=== PATIENT | male | born 1950 | race Caucasian/White ===

== ENCOUNTER → 2017-02-13 | Outpatient (CLI) | payer MEDICARE ==
[2015-09-13 15:00] VITALS: BP 116/85
[~2017-02-13] MED LIST: APIX5TAB PO; ASPI-482 PO; ATORVASTATIN CA80 MG PO; CARV12.52 PO; CARV6.25 PO; DIGO125T16 PO; DILT180C64 PO; Diltiazem Hcl PO; HYDR25TA9 PO; LISI40TA PO; NIAC500T4 PO; Nicotine TD; PRAV80TA2 PO; Promethazine Hcl/Codeine PO; [UNRECOGNIZED DRUG - CODE] IJ
--- NOTE | 2017-02-13 09:41 | CARD ---
APPROVED REPORT EXAM: Two-dimensional and M-mode echocardiogram with Doppler and color Doppler. Other Information Quality : GoodHR: 81bpm Rhythm : Atrial Fibrillation INDICATION Systolic heart failure RISK FACTORS Hypertension Obesity Hyperlipidemia Smoking 2D DIMENSIONS RVDd3.7 (2.9-3.5cm)Left Atrium(2D)4.5 (1.6-4.0cm) IVSd1.2 (0.7-1.1cm)Aortic Root(2D)3.9 (2.0-3.7cm) LVDd5.5 (3.9-5.9cm)LVOT Diameter2.4 (1.8-2.4cm) PWd1.3 (0.7-1.1cm)LVDs4.7 (2.5-4.0cm) FS (%) 14.1 %SV43.6 ml LVEF(%)29.8 (>50%) Mitral Valve MV E Peak Gr.3mmHgMV E Mean Gr.1mmHg Pulmonary Valve PV Peak Mcmmdnnp592.5cm/s Tricuspid Valve TR P. Lvfdvuqs020ur/sTR Peak Gr.25mmHg Pulmonary Vein S1 Ggaufmmi54.9cm/sD2 Xdcrvbtt08.4cm/s LEFT VENTRICLE The left ventricle is normal size. There is mild concentric left ventricular hypertrophy. Left ventri sonny systolic function is mild to moderately impaired. The Ejection Fraction is 35% There is moderate global hypokinesis of the left ventricle. Tissue Doppler imaging reveals moderate left ventricular di astolic dysfunction. RIGHT VENTRICLE The right ventricle is normal size. There is normal right ventricular wall thickness. The right ventr icular systolic function is normal. A pacemaker/ICD lead is noted. ATRIA The left atrium is severely dilated. The right atrium is mildly dilated. The interatrial septum is in tact with no evidence for an atrial septal defect or patent foramen ovale as noted on 2-D or Doppler imaging. AORTIC VALVE The aortic valve is mildly thickened. The aortic valve is trileaflet. Doppler and Color Flow revealed no significant aortic regurgitation. There is no significant aortic valvular stenosis. MITRAL VALVE The mitral valve leaflets are thickened. There is no evidence of mitral valve prolapse. There is no m itral valve stenosis. Doppler and Color Flow revealed mild mitral regurgitation. TRICUSPID VALVE Doppler and Color Flow revealed mild tricuspid regurgitation. The pulmonary artery systolic pressure is estimated at 28 mmHg. There is no pulmonary hypertension. PULMONIC VALVE Doppler and Color Flow revealed trace pulmonic valvular regurgitation. There is no pulmonic valvular stenosis. GREAT VESSELS The aortic root is mildly enlarged. The ascending aorta is mildly dilated. The IVC is normal in size and collapses >50% with inspiration. PERICARDIAL EFFUSION There is no evidence of significant pericardial effusion. Critical Notification Critical Value: No <Conclusion> Left ventricle systolic function is mild to moderately impaired. The Ejection Fraction is 35% There is moderate global hypokinesis of the left ventricle. A pacemaker/ICD lead is noted.
== END | disposition home or self-care (01) ==
LOC: ECHO 07:29
PROVIDERS: ATTEND Internal Medicine Cardiovascular Disease
DX: I07.1 Rheumatic tricuspid insufficiency (principal)
CPT/HCPCS: 93306

== ENCOUNTER 2017-12-28 13:34 | Emergency (ER) | payer MEDICARE ==
[2017-12-28] MEDS: diazePAM 5 MG TABLET PO (14:58)
[2017-12-28] MEDS: predniSONE 10 MG TABLET PO (14:58)
[2017-12-28] MEDS: HYDROcodone/APAP 5/325MG 1 TAB TABLET PO (14:59)
== END 2017-12-28 15:18 | disposition home or self-care (01) ==
LOC: ER 13:34
DX: M54.5 Low back pain (principal); I25.2 Old myocardial infarction; I10 Essential (primary) hypertension; Z95.5 Presence of coronary angioplasty implant and graft
CPT/HCPCS: 99284; J7512

== ENCOUNTER 2018-05-02 11:05 | Emergency (ER) | payer MEDICARE ==
[2018-05-02 11:39] LABS: ADD MAN DIFF? NO
[2018-05-02 11:42] LABS: BASO # 0.1 x10^3/uL (0.0-0.2); BASO % 1 % (0-3); EOS # 0.1 x10^3/uL (0.0-0.7); EOS % 2 % (0-3); HEMATOCRIT 46.1 % (39.0-53.0); HEMOGLOBIN 15.6 g/dL (13.0-17.5); LYMPH # 1.7 x10^3/uL (1.0-4.8); LYMPH % 19 % (24-48); MEAN CORPUSCULAR HEMOGLOBIN 31 pg (25-35); MEAN CORPUSCULAR HGB CONC 34 g/dL (31-37); MEAN CORPUSCULAR VOLUME 93 fL (79-100); MONO # 0.8 x10^3/uL (0.0-1.1); MONO % 9 % (0-9); NEUT # 6.1 x10^3uL (1.8-7.7); NEUT % 69 % (31-73); PLATELET COUNT 169 x10^3/uL (140-400); RED BLOOD COUNT 4.98 x10^6/uL (4.30-5.70); RED CELL DISTRIBUTION WIDTH 14.7 % (11.5-14.5); WHITE BLOOD COUNT 8.7 x10^3/uL (4.0-11.0)
[2018-05-02 11:55] LABS: ANION GAP 11 (6-14); BLOOD UREA NITROGEN 26 mg/dL (8-26); BUN/CREATININE RATIO 24 (6-20); CARBON DIOXIDE 27 mmol/L (21-32); CHLORIDE 104 mmol/L (98-107); CREATININE 1.1 mg/dL (0.7-1.3); GLUCOSE 110 mg/dL (70-99); POTASSIUM 3.5 mmol/L (3.5-5.1); SODIUM 142 mmol/L (136-145)
[2018-05-02 12:01] LABS: ALBUMIN 3.6 g/dL (3.4-5.0); ALBUMIN/GLOBULIN RATIO 1.1 (1.0-1.7); ALK PHOS 75 U/L (46-116); ALT (SGPT) 17 U/L (16-63); AST (SGOT) 26 U/L (15-37); TOTAL BILIRUBIN 0.7 mg/dL (0.2-1.0)
[2018-05-02 12:04] LABS: NT-PRO BNP 805 pg/mL (0-124); TROPONINI < 0.017 ng/mL (0.000-0.055)
[2018-05-02] MEDS: IPRATRPIUM/ALBUTEROL 0.5/2.5MG 3 ML NEBU. NEB (12:10)
[2018-05-02 12:16] LABS: INR 1.2 (0.8-1.1); PROTHROMBIN TIME PATIENT 14.2 SEC (11.7-14.0)
[2018-05-02] MEDS: predniSONE 10 MG TABLET PO (12:20)
[2018-05-02] MEDS: DOXYCYCLINE HYCLATE 100 MG TABLET PO (12:20)
== END 2018-05-02 13:43 | disposition home or self-care (01) ==
LOC: ER 11:05
DX: J40 Bronchitis, not specified as acute or chronic (principal); I10 Essential (primary) hypertension; I25.2 Old myocardial infarction; Z95.5 Presence of coronary angioplasty implant and graft
CPT/HCPCS: 36415; 71045; 80053; 83880; 84484; 85025; 85610; 93005; 94640; 99285-25; J7512; J7620

== ENCOUNTER 2018-06-13 14:55 | Emergency (ER) | payer MEDICARE ==
[~2018-06-13] VITALS: Ht 177.8 cm; Wt 106.6 kg
[~2018-06-13 14:55] MED LIST changes: +ALBU2.5V5 NEB; +CYCL10TA2 PO; -DIGO125T16 PO; +DIGO125T79 PO; +DOXY100T PO; +HYDR-971 PO; +LISI-130 PO; -LISI40TA PO; +METH4TAB2 PO; +PRED50TA PO; +PROAIR HFA8.5 GM INH
[2018-06-13 15:32] LABS: BASO # 0.1 x10^3/uL (0.0-0.2); BASO % 1 % (0-3); EOS # 0.1 x10^3/uL (0.0-0.7); EOS % 1 % (0-3); HEMATOCRIT 44.9 % (39.0-53.0); HEMOGLOBIN 15.3 g/dL (13.0-17.5); LYMPH # 1.4 x10^3/uL (1.0-4.8); LYMPH % 14 % (24-48); MEAN CORPUSCULAR HEMOGLOBIN 31 pg (25-35); MEAN CORPUSCULAR HGB CONC 34 g/dL (31-37); MEAN CORPUSCULAR VOLUME 91 fL (79-100); MONO # 0.9 x10^3/uL (0.0-1.1); MONO % 9 % (0-9); NEUT # 7.2 x10^3uL (1.8-7.7); NEUT % 75 % (31-73); PLATELET COUNT 179 x10^3/uL (140-400); RED BLOOD COUNT 4.95 x10^6/uL (4.30-5.70); RED CELL DISTRIBUTION WIDTH 14.7 % (11.5-14.5); WHITE BLOOD COUNT 9.7 x10^3/uL (4.0-11.0)
--- NOTE | 2018-06-13 15:37 | RAD ---
Exam: AP portable chest History: Shortness of breath today. Comparison: May 02, 2018. Findings: The heart and mediastinal structures are within normal limits for size. Lungs are without infiltrate. No pleural effusion or pneumothorax is identified. The AICD by left subclavian approach is seen. Impression: 1. No acute cardiopulmonary process. Electronically signed by: Shaheen Ge MD (06/13/2018 3:34 PM) [facility]
[2018-06-13 15:51] LABS: CALCIUM 9.6 mg/dL (8.5-10.1); CREATININE 0.9 mg/dL (0.7-1.3); GFR 84.2; POTASSIUM 3.5 mmol/L (3.5-5.1)
--- NOTE | 2018-06-13 15:52 | PHYS DOC ---
Past Medical History Past Medical History: Bronchitis, CAD, CHF, Hypertension, [place] Past Surgical History: Angioplasty, Pacemaker Additional Past Surgical Histo: cardiac stent placement Alcohol Use: None Drug Use: None Adult General Chief Complaint Chief Complaint: WEAKNESS/GENERALIZED HPI HPI Patient is a 68 year old male who presents with a history of profuse sweating. The patient states that he has no current chest pain, nausea or vomiting. He states that he feels fine but is sweating and tired. He states that he did have a heart attack with stents placed in 2008 and his main symptom with that MO was profuse sweating, so this incident scared him. He sees cardiology and does have an implanted pacemaker. Review of Systems Review of Systems Constitutional: Denies fever or chills [] Eyes: Denies change in visual acuity, redness, or eye pain [] HENT: Denies nasal congestion or sore throat [] Respiratory: Denies cough or shortness of breath [] Cardiovascular: See history of present illness GI: Denies abdominal pain, nausea, vomiting, bloody stools or diarrhea [] : Denies dysuria or hematuria [] Musculoskeletal: Denies back pain or joint pain [] Integument: Denies rash or skin lesions [] Neurologic: Denies headache, focal weakness or sensory changes [] Endocrine: Denies polyuria or polydipsia [] All other systems were reviewed and found to be within normal limits, except as documented in this note. Allergies Allergies Allergies Coded Allergies Type Severity Reaction Last Updated Verified No Known Drug Allergies 09/27/14 No Physical Exam Physical Exam Constitutional: Well developed, well nourished, no acute distress, non-toxic appearance. [] HENT: Normocephalic, atraumatic, bilateral external ears normal, oropharynx moist, no oral exudates, nose normal. [] Eyes: PERRLA, EOMI, conjunctiva normal, no discharge. [] Neck: Normal range of motion, no tenderness, supple, no stridor. [] Cardiovascular:Heart rate regular rhythm, no murmur [] Lungs & Thorax: Bilateral breath sounds clear to auscultation [] Abdomen: Bowel sounds normal, soft, no tenderness, no masses, no pulsatile masses. [] Skin: Warm, dry, no erythema, no rash. [] Neurologic: Alert and oriented X 3, normal motor function, normal sensory function, no focal deficits noted. [] Psychologic: Affect normal, judgement normal, mood normal. [] Current Patient Data Vital Signs Vital Signs Date Time Temp Pulse Resp B/P (MAP) Pulse Ox O2 Delivery O2 Flow Rate FiO2 06/13/18 18:21 96 20 96 06/13/18 14:55 98.3 134/73 (93) Room Air 98.3 Lab Values Laboratory Tests Test 06/13/18 15:24 06/13/18 17:25 White Blood Count 9.7 x10^3/uL (4.0-11.0) Red Blood Count 4.95 x10^6/uL (4.30-5.70) Hemoglobin 15.3 g/dL (13.0-17.5) Hematocrit 44.9 % (39.0-53.0) Mean Corpuscular Volume 91 fL (79-100) Mean Corpuscular Hemoglobin 31 pg (25-35) Mean Corpuscular Hemoglobin Concent 34 g/dL (31-37) Red Cell Distribution Width 14.7 % (11.5-14.5) H Platelet Count 179 x10^3/uL (140-400) Neutrophils (%) (Auto) 75 % (31-73) H Lymphocytes (%) (Auto) 14 % (24-48) L Monocytes (%) (Auto) 9 % (0-9) Eosinophils (%) (Auto) 1 % (0-3) Basophils (%) (Auto) 1 % (0-3) Neutrophils # (Auto) 7.2 x10^3uL (1.8-7.7) Lymphocytes # (Auto) 1.4 x10^3/uL (1.0-4.8) Monocytes # (Auto) 0.9 x10^3/uL (0.0-1.1) Eosinophils # (Auto) 0.1 x10^3/uL (0.0-0.7) Basophils # (Auto) 0.1 x10^3/uL (0.0-0.2) D-Dimer (Kanwal) 0.36 ug/mlFEU (0.00-0.50) Sodium Level 138 mmol/L (136-145) Potassium Level 3.5 mmol/L (3.5-5.1) Chloride Level 102 mmol/L (98-107) Carbon Dioxide Level 29 mmol/L (21-32) Anion Gap 7 (6-14) Blood Urea Nitrogen 20 mg/dL (8-26) Creatinine 0.9 mg/dL (0.7-1.3) Estimated GFR (Cockcroft-Gault) 84.2 BUN/Creatinine Ratio 22 (6-20) H Glucose Level 117 mg/dL (70-99) H Calcium Level 9.6 mg/dL (8.5-10.1) Total Bilirubin 0.6 mg/dL (0.2-1.0) Aspartate Amino Transferase (AST) 17 U/L (15-37) Alanine Aminotransferase (ALT) 22 U/L (16-63) Alkaline Phosphatase 69 U/L (46-116) Creatine Kinase 218 U/L (39-308) Creatine Kinase MB (Mass) 1.7 ng/mL (0.0-3.6) Creatine Kinase MB Relative Index 0.8 % (0-4) Troponin I Quantitative < 0.017 ng/mL (0.000-0.055) Total Protein 6.8 g/dL (6.4-8.2) Albumin 3.6 g/dL (3.4-5.0) Albumin/Globulin Ratio 1.1 (1.0-1.7) Urine Collection Type Unknown Urine Color Yellow Urine Clarity Clear Urine pH 6.5 Urine Specific [place] 1.020 Urine Protein Negative mg/dL (NEG-TRACE) Urine Glucose (UA) Negative mg/dL (NEG) Urine Ketones (Stick) Negative mg/dL (NEG) Urine Blood Small (NEG) Urine Nitrite Negative (NEG) Urine Bilirubin Negative (NEG) Urine Urobilinogen Dipstick 0.2 mg/dL (0.2 mg/dL) Urine Leukocyte Esterase Trace (NEG) Urine RBC 6-10 /HPF (0-2) Urine WBC Rare /HPF (0-4) Urine Squamous Epithelial Cells None /LPF Urine Bacteria 0 /HPF (0-FEW) Urine Hyaline Casts Occasional /HPF Urine Mucus Marked /LPF Laboratory Tests 06/13/18 15:24 Laboratory Tests 06/13/18 15:24 EKG EKG [] Radiology/Procedures Radiology/Procedures [] PATIENT: KATHERINE GARCIA ACCOUNT: [id number] : 1950 LOCATION: ER AGE: 68 SEX: M EXAM STATUS: PRE ER ORD. PHYSICIAN: YAEL ROSALES APRN REASON: soa PROCEDURE: CHEST AP ONLY Exam: AP portable chest History: Shortness of breath today. Comparison: May 02, 2018. Findings: The heart and mediastinal structures are within normal limits for size. Lungs are without infiltrate. No pleural effusion or pneumothorax is identified. The AICD by left subclavian approach is seen. Impression: 1. No acute cardiopulmonary process. Electronically signed by: Shaheen Laureano MD (06/13/2018 3:34 PM) [facility] DICTATED and SIGNED BY: SHAHEEN LAUREANO MD DATE: 06/13/18 1533 Course & Med Decision Making Course & Med Decision Making Pertinent Labs and Imaging studies reviewed. (See chart for details) []The patient states that he would prefer to be discharged home for recovery. He states that he will return to the emergency department immediately for any worsening in his symptoms. I did offer him admission for cardiac follow-up. He declined. Dragon Disclaimer Dragon Disclaimer This electronic medical record was generated, in whole or in part, using a voice recognition dictation system. Departure Departure Impression: Primary Impression: Diaphoresis Disposition: 01 HOME, SELF-CARE Condition: STABLE Referrals: NO PCP (PCP) ROXANA NEGRON MD Patient Instructions: Diaphoresis Additional Instructions: Follow-up with your sales ledger clerk for reevaluation within the week. If worsening please return to the emergency department. Increase fluids and rest. YAEL ROSALES APRN Jun 13, 2018 15:52
[2018-06-13 15:55] LABS: ALBUMIN 3.6 g/dL (3.4-5.0); ALBUMIN/GLOBULIN RATIO 1.1 (1.0-1.7); TOTAL BILIRUBIN 0.6 mg/dL (0.2-1.0); TOTAL PROTEIN 6.8 g/dL (6.4-8.2)
[2018-06-13 17:32] LABS: BILIRUBIN,URINE NEGATIVE (NEG); CLARITY,URINE CLEAR; COLOR,URINE YELLOW; NITRITE,URINE NEGATIVE (NEG); PH,URINE 6.5; PROTEIN,URINE NEGATIVE (NEG-TRACE); UROBILINOGEN,URINE 0.2 mg/dL (0.2 mg/dL)
[2018-06-13 17:52] LABS: BACTERIA,URINE 0 /HPF (0-FEW); WBC,URINE RARE /HPF (0-4)
[2018-06-13 17:54] LABS: HYALINE CASTS, URINE OCCASIONAL /HPF
[2018-06-13 18:21] VITALS: BP 137/82
--- NOTE | 2018-06-14 11:08 | EKG ---
[facility] [address] [place] [address] Test Date: 2018-06-13 Test Time: 14:58:53 Pat Name: KATHERINE GARCIA Department: Room: Gender: M Senior Quality Analyst: : 1950 Requested By: YAEL ROSALES Order Number: [id number] Reading MD: Jose Alfredo Oconnell MD Measurements Intervals [place] Rate: 100 P: ND: QRS: -19 QRSD: 98 T: 7 QT: 330 QTc: 428 Interpretive Statements ATRIAL FIB./FLUTTER WITH RAPID VENTRICULAR RESPONSE NON-SPECIFIC ST/T CHANGES Electronically Signed On 06-16-2018 10:38:21 CDT by Jose Alfredo Oconnell MD
== END 2018-06-13 18:22 | disposition home or self-care (01) ==
LOC: ER 14:55
DX: R61 Generalized hyperhidrosis (principal); I11.0 Hypertensive heart disease with heart failure; I50.9 Heart failure, unspecified; I25.10 Atherosclerotic heart disease of native coronary artery without angina pectoris; I25.2 Old myocardial infarction; Z95.5 Presence of coronary angioplasty implant and graft; Z95.0 Presence of cardiac pacemaker
CPT/HCPCS: 36415; 71045; 80053; 81001; 82553; 84484; 85025; 85379; 87086; 93005; 99285-25

== ENCOUNTER 2019-04-17 15:30 | Emergency (ER) | payer MEDICARE, OTHER ==
[~2019-04-17] VITALS: Ht 177.8 cm; Wt 104.3 kg
[~2019-04-17 15:30] MED LIST changes: +ALBU2.5V8 INH; +CARV12.511 PO; -CARV12.52 PO; +HYDR-2145 PO; +HYDR-3164 PO; -HYDR-971 PO; -HYDR25TA9 PO; -PROAIR HFA8.5 GM INH
[2019-04-17 15:35] VITALS: BP 149/68
[2019-04-17] MEDS ORDERED: SILVER NITRATE STICK TP ONE (15:45)
--- NOTE | 2019-04-17 15:51 | PHYS DOC ---
Past Medical History Past Medical History: Bronchitis, CAD, CHF, Hypertension, [place] Past Surgical History: Angioplasty, Pacemaker Additional Past Surgical Histo: cardiac stent placement Alcohol Use: None Drug Use: None Adult General Chief Complaint Chief Complaint: OTHER COMPLAINTS HPI HPI Patient is a 68 year old male who presents to the ER after cutting a mole off his right arm round 5:30 AM this morning. The patient is on Eliquis as well as aspirin at home. Patient states that the site has continued to bleed since the time he cut it off and won't stop bleeding. Denies any pain at this time. Interventions tried at home include putting pressure on the wound, and keeping it dressed. Review of Systems Review of Systems Constitutional: Denies fever or chills [] Eyes: Denies change in visual acuity, redness, or eye pain [] HENT: Denies nasal congestion or sore throat [] Respiratory: Denies cough or shortness of breath [] Cardiovascular: No additional information not addressed in HPI [] GI: Denies abdominal pain, nausea, vomiting, bloody stools or diarrhea [] : Denies dysuria or hematuria [] Musculoskeletal: Denies back pain or joint pain [] Integument: Denies rash or skin lesions. Reports cutting off a mole and the site will not stop bleeding. Neurologic: Denies headache, dizziness, focal weakness or sensory changes [] Endocrine: Denies polyuria or polydipsia [] Complete systems were reviewed and found to be within normal limits, except as documented in this note. Current Medications Current Medications Current Medications Medications (Trade) Dose Ordered Sig/Jose Start Time Stop Time Status Last Admin Dose Admin Silver Nitrate/ Potassium Nitrate 1 each 1X ONCE 04/17/19 15:45 04/17/19 15:46 DC 04/17/19 15:45 1 EACH Allergies Allergies Allergies Coded Allergies Type Severity Reaction Last Updated Verified No Known Drug Allergies 09/27/14 No Physical Exam Physical Exam Constitutional: Well developed, well nourished, no acute distress, non-toxic appearance. [] HENT: Normocephalic, atraumatic, bilateral external ears normal, oropharynx moist, no oral exudates, nose normal. [] Eyes: PERRLA, EOMI, conjunctiva normal, no discharge. [] Neck: Normal range of motion, no tenderness, supple, no stridor. [] Cardiovascular:Heart rate regular rhythm, no murmur [] Lungs & Thorax: Bilateral breath sounds clear to auscultation [] Abdomen: Bowel sounds normal, soft, no tenderness, no masses, no pulsatile masses. [] Skin: Warm, dry, no erythema, no rash. 0.5 cm hole where mole was removed in the R upper arm that is oozing blood. Back: No tenderness, no CVA tenderness. [] Extremities: No tenderness, no cyanosis, no clubbing, ROM intact, no edema. [] Neurologic: Alert and oriented X 3, normal motor function, normal sensory function, no focal deficits noted. [] Psychologic: Affect normal, judgement normal, mood normal. [] Current Patient Data Vital Signs Vital Signs Date Time Temp Pulse Resp B/P (MAP) Pulse Ox O2 Delivery O2 Flow Rate FiO2 04/17/19 15:35 98.7 88 20 149/68 (95) 96 Room Air 98.7 EKG EKG [] Radiology/Procedures Radiology/Procedures [] Course & Med Decision Making Course & Med Decision Making Pertinent Labs and Imaging studies reviewed. (See chart for details) Patient has blood oozing from where he cut a mole off. Is on Eliquis and Aspirin at home. Patient ambulated into ER and denies dizziness. Will try v-pad to control bleeding. If this does not work, will then try silver nitrate. V-pad was not working. Placed silver nitrate on the hole. Still oozing some after silver nitrate. Placed v-pad and pressure dressed the wound. Will check again in 10 minutes (1600). On reevaluation. Wound has stopped bleeding. Will d/c home with precautions to return if starts bleeding again. Dragon Disclaimer Dragon Disclaimer This electronic medical record was generated, in whole or in part, using a voice recognition dictation system. Departure Departure Impression: Primary Impression: Bleeding Disposition: HOME, SELF-CARE Condition: STABLE Referrals: NO PCP (PCP) Additional Instructions: Thank you for visiting [facility]. We appreciate you trusting us with your care. If any additional problems come up don't hesitate to return to visit us. Please follow up with your primary care provider so they can plan additional care if needed and know about the problem that you had. If symptoms worsen come back to the Emergency Department. Any concerning symptoms that start such as chest pain, shortness of Air, weakness or numbness on one side of the body, running high fevers or any other concerning symptoms return to the ER. Please do not attempt any other procedures at home. If site starts bleeding again please come back to the ER. EDNILSON SARGENT APRN Apr 17, 2019 15:51
== END 2019-04-17 16:41 | disposition home or self-care (01) ==
LOC: ER 15:30
DX: R58 Hemorrhage, not elsewhere classified (principal); I11.0 Hypertensive heart disease with heart failure; I50.9 Heart failure, unspecified; I25.10 Atherosclerotic heart disease of native coronary artery without angina pectoris; I25.2 Old myocardial infarction; Z95.0 Presence of cardiac pacemaker; Z95.5 Presence of coronary angioplasty implant and graft
CPT/HCPCS: 99282

== ENCOUNTER → 2019-05-24 | Outpatient (CLI) | payer MEDICARE, OTHER ==
--- NOTE | 2019-05-24 11:54 | CARD ---
MR#: [id number] Date of Study: 05/24/2019 Ordering Physician: ROXANA NEGRON, Referring Physician: ROXANA NEGRON, Tech: Luz Botello APPROVED REPORT EXAM: Two-dimensional and M-mode echocardiogram with Doppler and color Doppler. Other Information Quality : GoodHR: 68bpm INDICATION Cardiomyopathy Surgery/Intervention ICD/Pacemaker: Date: 2016 RISK FACTORS Hypertension Hyperlipidemia Smoking 2D DIMENSIONS RVDd4.0 (2.9-3.5cm)Left Atrium(2D)4.9 (1.6-4.0cm) IVSd1.2 (0.7-1.1cm)Aortic Root(2D)3.8 (2.0-3.7cm) LVDd6.0 (3.9-5.9cm)LVOT Diameter2.2 (1.8-2.4cm) PWd1.2 (0.7-1.1cm)LVDs4.2 (2.5-4.0cm) FS (%) 29.6 %SV99.3 ml Aortic Valve AoV Peak Jose J.109.5cm/sAoV VTI17.3cm AO Peak GR.4.8mmHgLVOT Peak Jose J.85.7cm/s LVOT VTI 15.94cmAO Mean GR.2mmHg MALU (VMAX)2.37tf7NKJ (VTI)3.60cm2 Mitral Valve MV E Vuvcaarn99.3cm/sMV DECEL [id number] MV A Vpuyvkep49.2cm/sMV NRO68qq E/A Ratio1.0MVA (PHT)4.22cm2 TDI E/Lateral E'7.2E/Medial E'9.7 Pulmonary Valve PV Peak Nxuhaoxd85.3cm/sPV Peak Grad.4mmHg Tricuspid Valve TR P. Mhgprgtv602ms/sRAP NIEDCRSX4huGb TR Peak Gr.23utVrKOOU49dkVt Pulmonary Vein S1 Dtlgogdo67.9cm/sD2 Brvwnraz28.2cm/s LEFT VENTRICLE The left ventricle is normal size. There is mild to moderate concentric left ventricular hypertrophy. Mild left ventricular systolic dysfunction. The ejection fraction is estimated at 45%. The left vent ricular diastolic function and filling is normal for age. RIGHT VENTRICLE The right ventricle is normal size. There is normal right ventricular wall thickness. The right ventr icular systolic function is normal. Pacer wire noted RA/RV. ATRIA The left atrium is moderately dilated. The right atrium is moderately dilated. The interatrial septum is intact with no evidence for an atrial septal defect or patent foramen ovale as noted on 2-D or Do ppler imaging. AORTIC VALVE The aortic valve is normal in structure and function. Doppler and Color Flow revealed trace aortic re gurgitation. There is no significant aortic valvular stenosis. MITRAL VALVE The mitral valve is thickened but opens well. There is no evidence of mitral valve prolapse. There is no mitral valve stenosis. Doppler and Color-flow revealed trace mitral regurgitation. TRICUSPID VALVE The tricuspid valve is normal in structure and function. Doppler and Color Flow revealed trace tricus pid regurgitation with an estimated PAP of 31 mmHg. There is no tricuspid valve prolapse or vegetatio n. There is no tricuspid valve stenosis. PULMONIC VALVE The pulmonary valve is normal in structure and function. Doppler and Color Flow revealed trace pulmon ic valvular regurgitation. GREAT VESSELS The aortic root is normal in size. The IVC is dilated and collapses >50% with inspiration. PERICARDIAL EFFUSION There is no evidence of significant pericardial effusion. Critical Notification Critical Value: No <Conclusion> Mild left ventricular systolic dysfunction. The ejection fraction is estimated at 45%. The left atrium is moderately dilated. Pacer wire noted RA/RV. Trace mitral regurgitation. Trace tricuspid regurgitation with an estimated PAP of 31 mmHg. There is no evidence of significant pericardial effusion. Signed by : Sin Rosas, Electronically Approved : 05/24/2019 11:54:11
== END | disposition home or self-care (01) ==
LOC: ECHO 08:15
PROVIDERS: ATTEND Internal Medicine Cardiovascular Disease
DX: I51.7 Cardiomegaly (principal); I42.9 Cardiomyopathy, unspecified
CPT/HCPCS: 93306

== ENCOUNTER → 2019-12-21 | Outpatient (CLI) | payer OTHER ==
[~2019-12-21] MED LIST changes: -NIAC500T4 PO; +[UNRECOGNIZED DRUG - CODE] PO
--- NOTE | 2019-12-21 16:49 | RAD ---
CT LOW DOSE LUNG SCREENING Indication: Nicotine dependence, 3 packs per day smoker Technique: Noncontrast CT imaging was performed of the chest as per low dose screening protocol, multiplanar reconstruction images submitted. One or more of the following individualized dose reduction techniques were utilized for this examination: 1. Automated exposure control 2. Adjustment of the mA and/or kV according to patient size 3. Use of iterative reconstruction technique. Comparison: None Findings: Visualized nodules are reference to axial series 2. There is a small 0.2 to 0.3 cm right upper lobe subpleural nodule image 63. There is 0.2 cm right upper lobe nodule image 52. There is 0.2 cm right upper lobe nodule image 76. There is less than 0.2 cm right upper lobe nodule image 97. There is 0.3 cm right upper lobe nodule image 176. There is 0.5 cm right lower lobe nodule image 243. There is 0.4 cm left upper lobe nodule image 109. There is 0.3 cm left lower lobe nodule image 227. Tubular ascending thoracic aorta is dilated about 4.5 cm. There is prominent coronary calcification. There is left electronic cardiac device. There is no pneumothorax, pleural or pericardial fluid, infiltrate. There is exophytic focus of density protruding posteriorly from the superior right kidney about 2.8 cm transverse with density measurements 53 Hounsfield units, kidneys not fully evaluated. There is also some peripheral calcification of the gallbladder which may be calcification of the wall or large gallstone, not fully evaluated. There is multilevel thoracic degenerative disc disease and abnormal alignment, multilevel facet degenerative change. There is dextroscoliosis centered upon the mid thoracic spine. IMPRESSION: 1. There are small pulmonary nodules as stated, largest about 0.5 cm. Lung RADS category 2, 12 month low-dose CT follow-up advised. 2. There is exophytic lesion arising from the right kidney, solid mass not excluded for which ultrasound or pre and postcontrast CT evaluation recommended. There is some calcification of the gallbladder, uncertain if due to gallbladder wall calcification (porcelain gallbladder) or large gallstone, not fully evaluated. 3. 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 4. There is coronary calcification. Electronically signed by: Eder Romero MD (12/21/2019 4:46 PM) [id number]
== END | disposition home or self-care (01) ==
LOC: CT 10:53
PROVIDERS: ATTEND Family Medicine
DX: F17.210 Nicotine dependence, cigarettes, uncomplicated (principal); R91.8 Other nonspecific abnormal finding of lung field; I25.10 Atherosclerotic heart disease of native coronary artery without angina pectoris; M51.34 Other intervertebral disc degeneration, thoracic region; K82.8 Other specified diseases of gallbladder; I71.2 Thoracic aortic aneurysm, without rupture
CPT/HCPCS: G0297

== ENCOUNTER → 2020-02-01 | Outpatient (CLI) | payer OTHER ==
--- NOTE | 2020-02-01 11:01 | KCIC ---
Sound the abdomen complete. HISTORY: Abnormal CT on December 20, right renal lesion, gallbladder abnormality Ultrasound was used to evaluate the abdomen. Comparison is made with a recent CT. Pancreas is poorly seen. There is shadowing at the gallbladder. There is either calcification the gallbladder wall or large gallstone. Common duct was normal measuring 4 mm. A liver lesion was not identified. There is flow the portal vein with color imaging. There is a simple cyst at the superior right kidney measuring 3.2 x 3.6 cm corresponding to the high density lesion noted on the CT most consistent with a benign cyst. There is no right hydronephrosis. Right kidney was 12.5 cm in length. There is a small cysts incidental cyst measuring 2 cm in the mid right kidney. Aorta is obscured proximally. Distal aorta is not enlarged. IVC at the liver is unremarkable. Spleen was normal in size and appearance. Left kidney was 12.7 cm in length without a mass or hydronephrosis. There is an incidental 1.2 cm left renal cyst. No further follow-up is required for the renal cysts. This study is mildly limited. IMPRESSION: 1. Shadowing at the gallbladder from a large gallstone or calcification of the gallbladder wall. 2. Incidental renal cysts no further follow-up required. 3. Somewhat limited study. Electronically signed by: Jasmeet Esparza MD (02/01/2020 10:58 AM) [id number]
== END | disposition home or self-care (01) ==
LOC: KCIC US 09:26
PROVIDERS: ATTEND Family Medicine
DX: N28.1 Cyst of kidney, acquired (principal)
CPT/HCPCS: 76700

== ENCOUNTER 2022-02-08 19:58 | Emergency (ER) | payer OTHER ==
[~2022-02-08] VITALS: Ht 177.8 cm; Wt 108.9 kg
[~2022-02-08 19:58] MED LIST changes: +CYCL10TA19 PO; -CYCL10TA2 PO
[2022-02-08 20:42] LABS: BASO # 0.1 x10^3/uL (0.0-0.2); BASO % 1 % (0-3); EOS # 0.1 x10^3/uL (0.0-0.7); EOS % 1 % (0-3); HEMATOCRIT 50.9 % (39.0-53.0); HEMOGLOBIN 17.2 g/dL (13.0-17.5); LYMPH # 1.4 x10^3/uL (1.0-4.8); LYMPH % 14 % (24-48); MEAN CORPUSCULAR HEMOGLOBIN 31 pg (25-35); MEAN CORPUSCULAR HGB CONC 34 g/dL (31-37); MEAN CORPUSCULAR VOLUME 91 fL (79-100); MONO % 11 % (0-9); NEUT # 6.9 x10^3/uL (1.8-7.7); NEUT % 73 % (31-73); PLATELET COUNT 209 x10^3/uL (140-400); RED BLOOD COUNT 5.58 x10^6/uL (4.30-5.70); RED CELL DISTRIBUTION WIDTH 15.6 % (11.5-14.5); WHITE BLOOD COUNT 9.6 x10^3/uL (4.0-11.0)
[2022-02-08 20:54] LABS: CALCIUM 9.9 mg/dL (8.5-10.1); CREATININE 1.3 mg/dL (0.7-1.3); GFR 54.6
[2022-02-08 21:00] LABS: ALBUMIN 3.7 g/dL (3.4-5.0); ALBUMIN/GLOBULIN RATIO 1.1 (1.0-1.7); TOTAL BILIRUBIN 0.4 mg/dL (0.2-1.0)
[2022-02-08] MEDS ORDERED: FUROSEMIDE 40 MG/4 ML VIAL. IVP ONE (21:00)
[2022-02-08] MEDS ORDERED: IPRATRPIUM/ALBUTEROL 0.5/2.5MG 3 ML NEBU. NEB ONE ×2 (21:00→22:30)
--- NOTE | 2022-02-08 21:01 | RAD ---
INDICATION: Reason: CHEST PAIN / Spl. Instructions: / History: COMPARISON: May 2018 FINDINGS: 2 view of chest obtained. Pacemaker is seen. Cardiac silhouette is similar to prior. Some disorganization of the pulmonary chance ings. Mild hazy opacity at the left lower lung. Degenerative changes of the spine. IMPRESSION: * Mild haziness at the left lung base could be from atelectasis or mild infiltrate. Electronically signed by: Oral Rodriguez MD (02/08/2022 8:59 PM) [id number]
[2022-02-08 23:30] VITALS: BP 149/73
--- NOTE | 2022-02-09 04:04 | EKG ---
[facility] [address] [place] [address] Test Date: 2022-02-08 Test Time: 20:15:22 Pat Name: KATHERINE GARCIA Department: Room: Gender: M Systems Software Specialist: : 1950 Requested By: AWAIS ZACARIAS Order Number: [id number] Reading MD: Don Bower Measurements Intervals [place] Rate: 83 P: 0 OR: 240 QRS: -9 QRSD: 106 T: 141 QT: 368 QTc: 433 Interpretive Statements ATRIAL FIBRILLATION NON SPECIFIC ST-T WAVE CHANGES Electronically Signed On 02-13-2022 17:46:15 CDT by Don Bower
== END 2022-02-08 23:40 | disposition home or self-care (01) ==
LOC: ER 19:58
DX: J45.909 Unspecified asthma, uncomplicated (principal)
CPT/HCPCS: 36415; 71046; 80053; 83880; 84484; 85025; 93005; 94640; 96374; 99285; J1940